=== PATIENT | female | born 1950 | race Caucasian/White ===

== ENCOUNTER 2020-10-08 08:44 | Outpatient (CLI) | payer MEDICARE, OTHER | END 2020-10-08 08:45 | disposition home or self-care (01) | LOC: CSHMRI 08:44 | PROVIDERS: ATTEND Psychiatry & Neurology Neurology | DX: G51.9 Disorder of facial nerve, unspecified (principal); G51.31 Clonic hemifacial spasm, right; I77.89 Other specified disorders of arteries and arterioles; K11.9 Disease of salivary gland, unspecified | CPT/HCPCS: 70544; 70553 ==

== ENCOUNTER 2021-02-19 09:23 | Outpatient (CLI) | payer MEDICARE, OTHER | END 2021-02-19 09:24 | disposition home or self-care (01) | LOC: CSHCT 09:23 | PROVIDERS: ATTEND Family Medicine | DX: R10.32 Left lower quadrant pain (principal) | CPT/HCPCS: 74177 ==

== ENCOUNTER 2022-07-13 10:13 | Outpatient (CLI) | payer MEDICARE, OTHER | END 2022-07-13 10:14 | disposition home or self-care (01) | LOC: CSHMAMMO 10:13 | PROVIDERS: ATTEND Obstetrics & Gynecology | DX: Z12.31 Encounter for screening mammogram for malignant neoplasm of breast (principal); M81.0 Age-related osteoporosis without current pathological fracture; M85.80 Other specified disorders of bone density and structure, unspecified site; M85.852 Other specified disorders of bone density and structure, left thigh | CPT/HCPCS: 77063; 77067; 77080 ==

== ENCOUNTER 2023-07-28 12:16 | Outpatient (CLI) | payer MEDICARE, OTHER | END 2023-07-28 12:17 | disposition home or self-care (01) | LOC: CSHMAMMO 12:16 | PROVIDERS: ATTEND Obstetrics & Gynecology | DX: Z12.31 Encounter for screening mammogram for malignant neoplasm of breast (principal); Z80.3 Family history of malignant neoplasm of breast | CPT/HCPCS: 77063; 77067 ==